=== PATIENT | male | born 1995 | race Asian ===

== ENCOUNTER 2021-10-15 11:54 | Outpatient (CLI) | payer BC, SELFPAY ==
[2021-10-15 12:40] LABS: Alanine Aminotransferase 104 U/L (4-50); Albumin Level 4.9 g/dL (3.5-5.1); Alkaline Phosphatase 63 U/L (38-126); Anion Gap 8 mmol/L (8-16); Aspartate Amino Transferase 63 U/L (17-59); Bilirubin,Total 0.9 mg/dL (0.2-1.3); Blood Urea Nitrogen 7 mg/dL (9-20); Calcium 9.1 mg/dL (8.4-10.2); Carbon Dioxide 26 mmol/L (22-30); Chloride 103 mmol/L (98-107); Cholesterol 165 mg/dL (0-200); Estimated Glomerular Filt Rate > 60; Glucose 96 mg/dL (65-110); HDL Direct 35 mg/dL; Potassium 4.9 mmol/L (3.4-5.0); Sodium 137 mmol/L (137-145); Triglycerides 89 mg/dL (<150)
[2021-10-15 12:50] LABS: LDL Cholesterol Direct 103 mg/dL
[2021-10-15 12:56] LABS: Hemoglobin A1C 5.5 % (<5.7)
== END 2021-10-15 11:55 | disposition home or self-care (01) ==
LOC: ANHLAB 11:58
PROVIDERS: PCP Nurse Practitioner; Visit Provider Nurse Practitioner
DX: Z00.00 Encounter for general adult medical examination without abnormal findings (principal)
CPT/HCPCS: 36415; 80053; 80061; 83036; 84443

== ENCOUNTER 2021-10-20 14:23 | Outpatient (CLI) | payer BC, SELFPAY ==
[2021-10-20 19:07] LABS: Hepatitis B Surface Antigen Negative (Negative)
[2021-10-20 19:13] LABS: HAV RESULT Negative (Negative); Hepatitis B Core IgM Result Negative (Negative)
[2021-10-20 19:25] LABS: Hepatitis C Virus Antibody Negative (Negative)
== END 2021-10-20 14:24 | disposition home or self-care (01) ==
LOC: ANHLAB 14:24
PROVIDERS: PCP Nurse Practitioner; Visit Provider Nurse Practitioner
DX: R74.8 Abnormal levels of other serum enzymes (principal)
CPT/HCPCS: 36415; 80074

== ENCOUNTER 2023-06-22 08:04 | Outpatient (CLI) | payer OTHER, SELFPAY ==
[2023-06-22 13:37] LABS: Alanine Aminotransferase 84 U/L (6-50); Albumin Level 4.5 g/dL (3.5-5.1); Alkaline Phosphatase 74 U/L (38-126); Anion Gap 8 mmol/L (8-16); Aspartate Amino Transferase 75 U/L (17-59); Bilirubin,Total 0.8 mg/dL (0.2-1.3); Blood Urea Nitrogen 9 mg/dL (9-20); Calcium 9.2 mg/dL (8.4-10.2); Carbon Dioxide 30 mmol/L (22-30); Chloride 102 mmol/L (98-107); Estimated Glomerular Filt Rate > 60; Glucose 76 mg/dL (65-110); Potassium 4.5 mmol/L (3.4-5.0); Sodium 140 mmol/L (137-145)
[2023-06-22 14:59] LABS: Hemoglobin A1C 6.4 % (<5.7)
[2023-06-22 15:03] LABS: Hepatitis B Surface Antigen Negative (Negative)
[2023-06-22 15:08] LABS: HAV RESULT Negative (Negative); Hepatitis B Core IgM Result Negative (Negative)
[2023-06-22 16:48] LABS: Hepatitis C Virus Antibody Negative (Negative)
== END 2023-06-22 08:05 | disposition home or self-care (01) ==
LOC: ANHGOSHLAB 08:05
PROVIDERS: Visit Provider Family Medicine
DX: R74.8 Abnormal levels of other serum enzymes (principal); E11.9 Type 2 diabetes mellitus without complications
CPT/HCPCS: 36415; 80053; 80074; 83036

== ENCOUNTER → 2023-06-23 07:49 | Outpatient (CLI) | payer OTHER, SELFPAY ==
--- NOTE | ~2023-06-23 | US_ITS ---
EXAMINATION: US abdomen complete DATE: 06/23/2023 08:14 INDICATION: R74.8 - Abnormal levels of other serum enzymes TECHNIQUE: Multiple grayscale and Doppler ultrasound images of the abdomen were obtained. COMPARISON: None available. FINDINGS: Pancreas obscured by bowel gas. Hyperechoic liver parenchyma. No surface nodularity. Normal hepatopetal flow in the main portal vein. 4 mm isoechoic nonmobile wall focus may represent adherent stone, sludge ball, or a polyp, for which no additional follow-up is recommended. The common bile du ct measures 4 mm. There was no sonographic Bello sign. The visualized portions of the aorta and infe rior vena cava are normal. The right kidney measures 10.9 x 6.2 x 5.4 cm. The left kidney measures 12.0 x 5.2 x 5.6 cm. The kidn eys demonstrate normal parenchymal echogenicity. There is no hydronephrosis. The spleen is normal in appearance and measures 9.3 cm. IMPRESSION: Pancreas obscured by bowel gas. Echogenic liver, most commonly due to steatosis but also can be seen with hepatitis and fibrosis. Otherwise unremarkable abdominal ultrasound findings.. Reviewed, dictated and finalized at location [facility]. HER IMPRESSION: Pancreas obscured by bowel gas. Echogenic liver, most commonly due to steatosis but also can be seen with hepat itis and fibrosis. Otherwise unremarkable abdominal ultrasound findings..
== END ==
PROVIDERS: PCP Family Medicine; Visit Provider Family Medicine
DX: R74.8 Abnormal levels of other serum enzymes (principal)
CPT/HCPCS: 76700

== ENCOUNTER 2023-12-26 09:24 | Outpatient (CLI) | payer OTHER, SELFPAY ==
[2023-12-26 20:06] LABS: Alanine Aminotransferase 37 U/L (6-50); Albumin Level 4.3 g/dL (3.5-5.1); Alkaline Phosphatase 77 U/L (38-126); Anion Gap 7 mmol/L (4-12); Aspartate Amino Transferase 39 U/L (17-59); Bilirubin,Total 0.6 mg/dL (0.2-1.3); Blood Urea Nitrogen 7 mg/dL (9-20); Calcium 9.2 mg/dL (8.4-10.2); Carbon Dioxide 29 mmol/L (22-30); Chloride 103 mmol/L (98-107); Estimated Glomerular Filt Rate > 60; Glucose 85 mg/dL (65-110); Potassium 4.2 mmol/L (3.4-5.0); Sodium 139 mmol/L (137-145)
[2023-12-26 21:16] LABS: Hemoglobin A1C 5.5 % (<5.7)
== END 2023-12-26 09:25 | disposition home or self-care (01) ==
LOC: ANHGOSHLAB 09:25
PROVIDERS: PCP Family Medicine; Visit Provider Family Medicine
DX: K75.81 Nonalcoholic steatohepatitis (NASH) (principal); R73.03 Prediabetes
CPT/HCPCS: 36415; 80053; 83036